=== PATIENT | female | born 1970 | race Caucasian/White ===

== ENCOUNTER 2019-08-18 21:25 | Emergency (ER) | payer OTHER ==
[~2019-08-18] VITALS: Ht 160 cm; Wt 70.3 kg
[2019-08-18] MEDS ORDERED: NOHOMEMEDICATIONS (21:39)
[2019-08-18 21:46] LABS: URINE BILIRUBIN NEGATIVE (Negative); URINE BLOOD 3+ (Negative); URINE CLARITY CLEAR; URINE COLOR RED; URINE GLUCOSE-RANDOM NEGATIVE (Negative); URINE KETONES NEGATIVE (Negative); URINE PROTEIN 2+ (Negative); URINE SPECIFIC GRAVITY 1.015 (1.005-1.030); URINE UROBILINOGEN 0.2 E.U./dl (0.2-1.0)
[2019-08-18 21:47] LABS: BACTERIA-REFLEX >30 Many /HPF (None Seen); CASTS None Seen /LPF (None Seen); CRYSTALS None Seen /LPF (None Seen); MUCUS 0-3 Light strn/LPF (None Seen); SQUAMOUS 0-3 Few /LPF (0-3); URINE LEUKOCYTES-REFLEX 2+ (Negative); URINE NITRITE-REFLEX POSITIVE (Negative); URINE RBC >20 Many /HPF (0-2); URINE WBC-REFLEX >25 Many /HPF (0-5); WBC CLUMPS Moderate (None Seen)
[2019-08-18] MEDS ORDERED: MACROBID 100 M100 MG PO (22:07)
[2019-08-18] MEDS ORDERED: PHENAZOPYRIDIN200 M2 PO (22:07)
[2019-08-18 22:17] VITALS: BP 123/39
== END 2019-08-18 22:18 | disposition home or self-care (01) ==
LOC: M.ERS 21:25
PROVIDERS: Nurse Practitioner Family
DX: N39.0 Urinary tract infection, site not specified (principal)